=== PATIENT | female | born 1995 | race African-American/Black ===

== ENCOUNTER 2017-01-17 11:19 | Emergency (ER) | payer OTHER ==
[~2017-01-17] VITALS: Ht 165.1 cm; Wt 52.2 kg
[~2017-01-17 11:19] MED LIST: FLAGYL500 MG PO; NAPROSYN500 MG PO
[2017-01-17 13:47] LABS: URINE BILIRUBIN NEGATIVE (Negative); URINE BLOOD NEGATIVE (Negative); URINE COLOR YELLOW; URINE GLUCOSE-RANDOM* NEGATIVE (Negative); URINE KETONES NEGATIVE (Negative); URINE NITRITE NEGATIVE (Negative); URINE PROTEIN (DIPSTICK) NEGATIVE (Negative)
[2017-01-17 14:14] LABS: SQUAMOUS >10 Many /LPF (0-3)
[2017-01-17 14:16] LABS: CASTS None Seen /LPF (None Seen); URINE RBC None Seen /HPF (0-2); URINE WBC 6-15 Few /HPF (0-5)
[2017-01-17 14:17] LABS: BACTERIA 1-9 Few /HPF (None Seen); CRYSTALS None Seen /LPF (None Seen)
[2017-01-17] MEDS ORDERED: MACROBID 100 M100 M1 PO (14:30)
[2017-01-17] MEDS ORDERED: DIFLUCAN200 MG PO (14:30)
[2017-01-17] MEDS ORDERED: FLAGYL500 MG PO (14:31)
[2017-01-17] MEDS ORDERED: CIPRO500 MG PO (14:56)
[2017-01-17 14:59] VITALS: BP 102/70
[2017-01-19 21:11] LABS: CHLAMYDIA TRACHOMATIS-PCR Negative (Negative); NEISSERIA GONORRHEA-PCR Negative (Negative)
== END 2017-01-17 15:01 | disposition home or self-care (01) ==
LOC: ER 11:19
PROVIDERS: Nurse Practitioner
DX: N39.0 Urinary tract infection, site not specified (principal); N76.0 Acute vaginitis; B37.9 Candidiasis, unspecified; Z11.3 Encounter for screening for infections with a predominantly sexual mode of transmission

== ENCOUNTER 2017-08-24 14:04 | Emergency (ER) | payer OTHER ==
[~2017-08-24] VITALS: Ht 170.2 cm; Wt 59.0 kg
[~2017-08-24 14:04] MED LIST changes: +CIPRO500 MG PO; +DIFLUCAN200 MG PO; +MACROBID 100 M100 M1 PO
[2017-08-24 14:06] VITALS: BP 111/77
[2017-08-24 14:45] LABS: URINE BILIRUBIN NEGATIVE (Negative); URINE BLOOD NEGATIVE (Negative); URINE COLOR YELLOW; URINE GLUCOSE-RANDOM* NEGATIVE (Negative); URINE KETONES NEGATIVE (Negative); URINE LEUKOCYTES-REFLEX NEGATIVE (Negative); URINE PROTEIN (DIPSTICK) NEGATIVE (Negative); URINE UROBILINOGEN 0.2 E.U./dl (0.2-1.0)
== END 2017-08-24 15:24 | disposition home or self-care (01) ==
LOC: ER 14:04
PROVIDERS: Emergency Medicine
DX: N76.0 Acute vaginitis (principal); A56.8 Sexually transmitted chlamydial infection of other sites

== ENCOUNTER 2017-09-11 07:52 | Emergency (ER) | payer OTHER ==
[~2017-09-11] VITALS: Ht 167.6 cm; Wt 68.0 kg
[2017-09-11 08:21] LABS: URINE BILIRUBIN NEGATIVE (Negative); URINE BLOOD 3+ (Negative); URINE CLARITY CLEAR; URINE COLOR YELLOW; URINE GLUCOSE-RANDOM* NEGATIVE (Negative); URINE KETONES NEGATIVE (Negative); URINE LEUKOCYTES NEGATIVE (Negative); URINE NITRITE NEGATIVE (Negative); URINE PROTEIN (DIPSTICK) TRACE (Negative); URINE SPECIFIC GRAVITY 1.025 (1.005-1.035); URINE UROBILINOGEN 0.2 E.U./dl (0.2-1.0)
[2017-09-11 08:34] LABS: CASTS None Seen /LPF (None Seen); CRYSTALS None Seen /LPF (None Seen); SQUAMOUS 4-10 Moderate /LPF (0-3); URINE RBC >20 Many /HPF (0-2); URINE WBC None Seen /HPF (0-5)
[2017-09-11 08:35] LABS: BACTERIA 1-9 Few /HPF (None Seen)
[2017-12-28] MEDS ORDERED: PEPCID AC20 MG PO (23:01)
[2018-04-26] MEDS ORDERED: FLAGYL500 MG PO (21:26)
[2018-04-26] MEDS ORDERED: METROGEL55 GM VAG (21:55)
== END 2017-09-11 08:46 | disposition home or self-care (01) ==
LOC: ER 07:52
PROVIDERS: Emergency Medicine
DX: N93.8 Other specified abnormal uterine and vaginal bleeding (principal); A54.9 Gonococcal infection, unspecified

== ENCOUNTER 2017-11-27 14:48 | Emergency (ER) | payer OTHER ==
[~2017-11-27] VITALS: Ht 170.2 cm; Wt 59.0 kg
[2017-11-27 15:14] LABS: URINE BILIRUBIN NEGATIVE (Negative); URINE BLOOD NEGATIVE (Negative); URINE CLARITY CLEAR; URINE COLOR YELLOW; URINE GLUCOSE-RANDOM* NEGATIVE (Negative); URINE KETONES NEGATIVE (Negative); URINE LEUKOCYTES-REFLEX NEGATIVE (Negative); URINE NITRITE-REFLEX NEGATIVE (Negative); URINE PROTEIN (DIPSTICK) 1+ (Negative); URINE SPECIFIC GRAVITY 1.015 (1.005-1.035)
[2017-11-27 15:21] LABS: BACTERIA-REFLEX 1-9 Few /HPF (None Seen); FINE GRANULAR CASTS 0-3 Few /LPF (None Seen); SQUAMOUS 0-3 Few /LPF (0-3); URINE RBC None Seen /HPF (0-2); URINE WBC-REFLEX 0-5 Rare /HPF (0-5)
[2017-11-27 15:22] LABS: CRYSTALS None Seen /LPF (None Seen)
[2017-11-27] MEDS ORDERED: KEFLEX500 M1 PO (16:23)
[2017-11-27] MEDS ORDERED: PRENATAL 19 CH1 EAC1 PO (16:27)
[2017-12-28] MEDS ORDERED: PEPCID AC20 MG PO (23:01)
[2018-04-26] MEDS ORDERED: FLAGYL500 MG PO (21:26)
[2018-04-26] MEDS ORDERED: METROGEL55 GM VAG (21:55)
== END 2017-11-27 16:37 | disposition home or self-care (01) ==
LOC: ER 14:48
PROVIDERS: Physician Assistant
DX: O26.891 Other specified pregnancy related conditions, first trimester (principal); S16.1XXA Strain of muscle, fascia and tendon at neck level, initial encounter; R82.71 Bacteriuria; R10.33 Periumbilical pain; Z3A.01 Less than 8 weeks gestation of pregnancy; Y08.89XA Assault by other specified means, initial encounter; Y93.89 Activity, other specified; Y92.89 Other specified places as the place of occurrence of the external cause; Y99.8 Other external cause status

== ENCOUNTER 2019-03-03 21:01 | Emergency (ER) | payer OTHER ==
[~2019-03-03] VITALS: Ht 170.2 cm; Wt 81.7 kg
[~2019-03-03 21:01] MED LIST changes: +KEFLEX500 M1 PO; +METROGEL55 GM VAG; +PEPCID AC20 MG PO; +PRENATAL 19 CH1 EAC1 PO
[2019-03-03 22:01] LABS: BASOPHILS 0.5 % (0.0-2.0); EOSINOPHILS 5.4 % (0.0-3.0); HEMATOCRIT 33.7 % (37.0-47.0); HEMOGLOBIN 11.2 gm/dL (12.0-15.0); LYMPHOCYTES 45.5 % (24.0-44.0); MCH 24.4 pg (26.0-34.0); MCHC 33.2 g/dL (28.0-37.0); MCV 73.3 fL (80.0-100.0); MONOCYTES 8.3 % (1.0-8.0); PLATELET COUNT 170 thou/uL (150-400); POLYS 40.3 % (36.0-66.0); RBC 4.59 mil/uL (4.20-5.00); RDW 14.8 % (10.5-14.5)
[2019-03-03] MEDS ORDERED: PRENATAL COMPL1 EACH PO (22:33)
[2019-03-03 22:45] VITALS: BP 116/73
[2019-03-04 01:09] LABS: URINE BILIRUBIN NEGATIVE (Negative); URINE BLOOD NEGATIVE (Negative); URINE CLARITY CLEAR; URINE COLOR YELLOW; URINE GLUCOSE-RANDOM* NEGATIVE (Negative); URINE KETONES NEGATIVE (Negative); URINE LEUKOCYTES-REFLEX NEGATIVE (Negative); URINE NITRITE-REFLEX NEGATIVE (Negative); URINE PROTEIN (DIPSTICK) NEGATIVE (Negative); URINE UROBILINOGEN 0.2 E.U./dl (0.2-1.0)
== END 2019-03-03 22:45 | disposition home or self-care (01) ==
LOC: ER 21:01
PROVIDERS: Emergency Medicine
DX: R10.9 Unspecified abdominal pain (principal); Z3A.00 Weeks of gestation of pregnancy not specified